=== PATIENT | male | born 1970 | race Asian ===

== ENCOUNTER 2017-08-05 08:18 | Inpatient (IN) | payer OTHER ==
[~2017-08-05] VITALS: Ht 162.6 cm; Wt 78.9 kg
[~2017-08-05 08:18] MED LIST: ASPIRIN EC81 MG PO; AVALIDE 300-121 EACH PO; METOPROLOL SUC100 MG PO; NISOLDIPINE17 MG PO; NITRO PATCH TOP
[2017-08-05] MEDS ORDERED: TETANUS/DIPHTHERIA TOX ADULT 0.5 ML SYR IM ONE (08:45)
[2017-08-05] MEDS ORDERED: SODIUM CHLORIDE 0.9% 1000ML 1,000 ML IV STA (09:06)
[2017-08-05] MEDS ORDERED: MORPHINE SULFATE 4 MG/ML SYR IV STA (09:06)
[2017-08-05] MEDS ORDERED: CEFAZOLIN SOD 1 GM/NS 50ML 50 ML IV STA (09:06)
[2017-08-05] MEDS ORDERED: ONDANSETRON HCL 4 MG ORAL DISINTEGRATING TAB PO ONE (09:15)
--- NOTE | 2017-08-05 09:40 | Diagnostic Imaging Report ---
EXAM: WRIST COMPLETE RIGHT DATE: 08/05/2017 8:43 AM INDICATION: Work injury/trauma COMPARISON: None FINDINGS: On the AP and oblique view there is a tiny ossific density at the base of the fifth metacarpal with adjacent soft tissue swelling. Lucency in the region of the radial styloid statistically represents residual apophysis. Minimal STT and first CMC joint osteoarthritis present. IMPRESSION: Tiny ossific density base of fifth metacarpal suggest tiny avulsion injury. Signed by: Dr. Anthony Currie MD on 08/05/2017 9:37 AM
--- NOTE | 2017-08-05 09:41 | Diagnostic Imaging Report ---
EXAM: HAND 3+ VIEWS RIGHT DATE: 08/05/2017 8:34 AM INDICATION: Injury COMPARISON: None FINDINGS: Tiny ossific density base of fifth metacarpal better visualized on wrist radiographs. Minimal STT and first CMC joint osteoarthritis present. Minimal deformity at the base of the fourth metacarpal possible. Significant dorsal soft tissue swelling present best seen lateral view. IMPRESSION: Tiny avulsion injury base of fifth metacarpal with possible nondisplaced fracture base of fourth metacarpal. Significant soft tissue swelling. Signed by: Dr. Anthony Currie MD on 08/05/2017 9:38 AM
[2017-08-05] MEDS: SODIUM CHLORIDE 0.9% 1000ML 1,000 ML IV SCH ×2 (10:48→21:16)
[2017-08-05] MEDS ORDERED: HYDRALAZINE HCL 20 MG/ML VIAL IV ONE ×2 (11:10→12:48)
[2017-08-05] MEDS ORDERED: CEFAZOLIN SOD 1 GM VIAL ONE (11:13)
--- OUTSIDE RECORDS SUMMARY | 2017-08-05 11:16 | XMS REPORT ---
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 Allergies, Adverse Reactions, Alerts This patient has no known allergies or adverse reactions. Medications This patient has no known medications. Results Test Description Test Time Test Comments Text Results Atomic Results Result Comments WRIST COMPLETE RIGHT [place] [address] Patient Name: ERICK GOMEZ MR #: [id number] : 1970 Age/Sex: 47/M Req #: [id number] Adm Physician: Ordered by: JUAREZ VILLARREAL MD Report #: [id number] Location: ER Room/Bed: Procedure: [id number] DX/WRIST COMPLETE RIGHT Exam Date: 08/05/17 Exam Time: 916 REPORT STATUS: Signed EXAM: WRIST COMPLETE RIGHT DATE: 08/05/2017 8:43 AM INDICATION: Work injury/trauma COMPARISON: None FINDINGS: On the AP and oblique view there is a tiny ossific density at the base of the fifth metacarpal with adjacent soft tissue swelling. Lucency in the region of the radial styloid statistically represents residual apophysis. Minimal STT and first CMC joint osteoarthritis present. IMPRESSION: Tiny ossific density base of fifth metacarpal suggest tiny avulsion injury. Signed by: Dr. Anthony Currie MD on 08/05/2017 9 :37 AM Dictated By: ANTHONY CURRIE MD 6 Transcribed By: IVON on 08/05/17936 COPY TO: JUAREZ VILLARREAL MD HAND 3+ VIEWS RIGHT [place] [address] Patient Name: ERICK GOMEZ MR #: [id number] : 1970 Age/Sex: 47/M Req #: [id number] Adm Physician: Ordered by: JUAREZ VILLARREAL MD Report #: [id number] Location: ER Room/Bed: Procedure: [id number] DX/HAND 3+ VIEWS RIGHT Exam Date: 08/05/17 Exam Time : 916 REPORT STATUS: Signed EXAM: HAND 3+ VIEWS RIGHT DATE: 2017 8:34 AM INDICATION: Injury COMPARISON: None FINDINGS: Tiny ossific density base of fifth metacarpal better visualized on wrist radiographs. Minimal STT and first CMC joint osteoarthritis present. Minimal deformity at the base of the fourth metacarpal possible. Significant dorsal soft tissue swelling present best seen lateral view. IMPRESSION: Tiny avulsion injury base of fifth metacarpal with possible nondisplaced fracture base of fourth metacarpal. Significant soft tissue swelling. Signed by: Dr. Anthony Currie MD on 08/05/2017 9:38 AM Dictated By: ANTHONY CURRIE MD 7 Transcribed By: IVON on 08/05/17937 COPY TO: JUAREZ VILLARREAL MD
--- NOTE | 2017-08-05 11:46 | Diagnostic Imaging Report ---
EXAM: XR CHEST 1 VIEW DATE: 08/05/2017 11:00 AM INDICATION: COMPARISON: None FINDINGS: Lines and Tubes: None Heart and Mediastinum: Sternotomy wires. Tortuous descending thoracic aorta. Lungs and Pleura: Minimal opacities in the lung bases statistically represent atelectasis, however, infectious process could have a similar appearance. Bones and Soft Tissues: No acute findings. IMPRESSION: 1. No acute cardiopulmonary findings. Signed by: Dr. Anthony Currie MD on 08/05/2017 11:42 AM
[2017-08-05 12:04] LABS: BASOPHILS # (AUTO) 0.1 (0.0-0.1); BASOPHILS % 0.5 % (0.0-1.0); EOSINOPHILS # (AUTO) 0.2 (0.0-0.4); EOSINOPHILS % 2.2 % (0.0-6.0); HEMATOCRIT 49.4 % (38.2-49.6); LYMPHOCYTES # (AUTO) 2.1 (1.0-3.2); MEAN CORPUSCULAR HEMOGLOBIN 27.9 pg (28-32); MEAN CORPUSCULAR HGB CONC 34.4 g/dL (31-35); MEAN CORPUSCULAR VOLUME 81.1 fL (81-99); MONOCYTES # (AUTO) 0.5 (0.2-0.8); MONOCYTES % 5.5 % (4.4-11.3); NEUTROPHILS # (AUTO) 6.3 (2.1-6.9); NEUTROPHILS % 68.2 % (38.7-80.0); PLATELET COUNT 163 x10e3/uL (140-360); RED BLOOD COUNT 6.09 x10e6/uL (4.3-5.7); RED CELL DISTRIBUTION WIDTH 12.9 % (11.7-14.4)
[2017-08-05 12:17] LABS: INR 1.02; PROTHROMBIN TIME 12.6 seconds (11.9-14.5)
[2017-08-05 12:19] LABS: CHOL/HDL RATIO 5.9 (3.9-4.7)
[2017-08-05 12:23] LABS: ALANINE AMINOTRANSFERASE 31 IU/L (0-55); ALBUMIN 4.2 g/dL (3.5-5.0); ALKALINE PHOSPHATASE 51 IU/L (40-150); ANION GAP 16.7 mmol/L (8-16); BLOOD UREA NITROGEN 14 mg/dL (7-26); BUN/CREATININE RATIO 15 (6-25); CALCIUM 9.8 mg/dL (8.4-10.2); CARBON DIOXIDE 23 mmol/L (22-29); CHLORIDE 101 mmol/L (98-107); CREATININE, SERUM 0.95 mg/dL (0.72-1.25); EST GLOMERULAR FILTRATION RATE > 60 ML/MIN (60-); GLUCOSE 141 mg/dL (74-118); POTASSIUM 4.7 mmol/L (3.5-5.1); SODIUM 136 mmol/L (136-145)
[2017-08-05] MEDS ORDERED: CLONIDINE HCL 0.1 MG/24 HR 1 EA PATCH TOP SCH (12:30)
[2017-08-05 13:35] VITALS: BP 131/70
[2017-08-05] MEDS ORDERED: MUPIROCIN 2% OINT 22 GM TUBE ONE (13:38)
[2017-08-05] MEDS ORDERED: BACITRACIN 50,000 UNIT VIAL ONE (13:38)
[2017-08-05] MEDS ORDERED: MORPHINE SULFATE 2 MG/ML SYR IV ONE (14:00)
--- NOTE | 2017-08-05 14:30 | History and Physical ---
HISTORY: Patient was admitted through the emergency room, patient of Dr. Yong Pratt. Patient with crush injury of the right hand using what he calls a channel. He makes heat exchangers. His right hand was caught in the machine. He is experiencing moderate pain, swelling, and numbness. He has a history of hypertension, coronary disease, smokes 1/3 of a pack a day, and history of premature coronary disease. Family history of coronary disease. He had bypass surgery in 2014 at [facility]. No respiratory, , or psychiatric complaints. History of angina prior to his bypass surgery, but not now. PHYSICAL EXAMINATION GENERAL: This is a well-developed American male, in no acute distress despite swelling of the right hand. VITAL SIGNS: Temperature 98, pulse 83, and blood pressure 211/126 on arrival. HEENT: Head, normocephalic and atraumatic. Eyes, extraocular movements intact. LUNGS: Clear. HEART: Regular rhythm. Median sternotomy scar. EXTREMITIES: There is edema of the right hand with a woody feeling and decreased pulses. PLAN: Doppler evaluation and hand surgery evaluation. X-ray suggests an avulsion injury in the fifth metacarpal and significant tissues. Awaiting plastic surgery opinion . The patient is still in the triage area. The patient takes aspirin and unknown antihypertensive. Thank you for this kind referral. Job#: [id number] RANDY
[2017-08-05] MEDS ORDERED: BUPIVACAINE HCL 0.5% INJ 30 ML VIAL INJ ONE (14:43)
[2017-08-05] MEDS ORDERED: HYDROMORPHONE 1MG/1ML INJ IV PRN (15:45)
[2017-08-05] MEDS ORDERED: HYDROCODONE/APAP 7.5MG-325MG 1 EA TAB PO PRN (15:45)
[2017-08-05] MEDS ORDERED: HYDROMORPHONE 2MG/ML INJ IV PRN (16:15)
[2017-08-05] MEDS ORDERED: LOSARTAN POTASSIUM 25 MG TAB PO SCH (17:00)
[2017-08-05] MEDS ORDERED: NON-FORMULARY MEDICATION (Metoprolol Succinate 25 MG) PO SCH (17:00)
[2017-08-05] MEDS: METOPROLOL SUCCINATE 25 MG TAB XL PO SCH (17:54)
[2017-08-05 19:38] VITALS: BP 180/98
[2017-08-05 20:18] VITALS: BP 150/84
[2017-08-05] MEDS ORDERED: ATORVASTATIN 20 MG TAB PO SCH (21:00)
[2017-08-05] MEDS: CEFAZOLIN SOD 1 GM VIAL IV SCH (21:16)
[2017-08-05] MEDS: ATORVASTATIN 40 MG TAB PO SCH (21:16)
--- NOTE | 2017-08-05 21:24 | Consultation ---
DATE OF CONSULTATION: August 05, 2017 ER CONSULTATION CHIEF COMPLAINT: Crush injury, right hand. HISTORY OF PRESENT ILLNESS: Patient is a 47-year-old [id number] male who earlier today sustained a crushing injury of the right hand. Patient states that a pipe wing in excess of 500 pounds rolled onto his right hand. He was taken to the emergency room. Evaluation revealed very tense swelling of the right hand with delayed capillary refill that progressed over the course of several hours since the patient's initial evaluation in the emergency room. PAST MEDICAL HISTORY: Notable for coronary artery bypass grafting and essential hypertension. CURRENT PHYSICAL EXAMINATION: The patient has a BP of 131/70. He is afebrile. The pertinent exam of the right hand showed there to be tense swelling with delayed capillary refill of all 5 fingers. The swelling is both volar and dorsal that extends to the distal forearm and wrist. The x-ray showed a small fracture at the base of the right fifth metacarpal, otherwise there are no other dislocations or abnormalities. IMPRESSION: Impending compartment syndrome, right hand. PLAN: Patient will be taken to the OR urgently for decompressive fasciotomy. Risks, benefits, alternatives of treatment will be discussed with the patient. Thank you for allowing me to participate in the care of your patient. Sincerely, Job#: [id number]
--- NOTE | 2017-08-05 21:48 | Operative Report ---
DATE OF PROCEDURE: August 05, 2017 PREOPERATIVE DIAGNOSIS: Crushed injury compartment syndrome, right hand and wrist. POSTOPERATIVE DIAGNOSIS: Crushed injury compartment syndrome, right hand and wrist. PROCEDURE PERFORMED: Decompressive fasciotomy, right hand and wrist. ANESTHESIA: General. HISTORY: The patient is a 47-year-old right-hand dominant male, who has a crushing injury of the right hand and wrist this a.m. Pipe in excess of 500 lbs rolled onto his hand. The risks, alternatives, benefits of treatments discussed with the patient. He was prepared to undergo the procedures as outlined. PROCEDURE: Patient was marked preoperatively in the holding area. He was brought to the operating theater and after the induction of adequate general anesthesia, he was prepped and draped in a supine position. A timeout was performed. A curvilinear incision was marked out palmarly starting from the 2nd metacarpal MPJ and curving through the intrathenar space and onto the radial side of the wrist and then, obliquely over the ulnar neurovascular bundle. Dorsally, incisions were marked out over the 2nd and 4th metacarpals. Right upper extremity was exsanguinated and the tourniquet inflated to a pressure of 250 mmHg. The incision volarly was made through the skin and subcutaneous tissues, where were controlled with the bipolar cautery. The palmar fascia was identified and it was . At this point, a volar forearm fascia was identified proximally and using this as a guide was incised down to the level of the transverse carpal ligament. The transverse carpal ligament was sectioned as well and the underlying median nerve was identified and protected and preserved. He had a massive amount of swelling, which was released after performing this maneuver. There was noted to be a large amount of hematoma at the base of the thenar eminence and this was removed and irrigated free as well. At the completion of the of the median nerve decompression, the ulnar neurovascular bundle was identified proximal to the wrist and the volar forearm fascia over this divided. The entire piece of tunnel was then opened as well. At this point, attention was turned to the dorsum of the hand. The incisions were made over the 2nd and 4th metacarpal through the skin and subcutaneous tissues. Bleeding was controlled using the bipolar cautery. The subcutaneous tissues were divided and the extensor tendon mechanisms were identified. They were retracted away from the underlying metacarpals. The intermetacarpal space musculature was identified and the fascia overlying it was sharply incised and this allowed muscle to bulge and to reduce the pressure. At this point, all the wounds were copiously irrigated with antibiotic-containing solution and exploration reveals there to be no active bleeding at this time and significant softening of the soft tissues. The skin was approximated with 4-0 and 5-0 nylon sutures in an interrupted horizontal mattress fashion. Care was taken to ensure that incisions were done without tension. Bactroban ointment, Xeroform gauze were placed on the incisions. The tourniquet was deflated. All the fingers pinked up nicely and a sterile bulky foam and bandage was applied. A fiberglass splint was used to maintain the wrist in approximately 60 to 70 degrees of extension and the MPs at approximately 60 degrees of flexion and the IPs neutral. This was held in place with loosely wrapped Yasmani wrap. Patient tolerated the procedure well. He was admitted to his hospital room for further care and treatment. Job#: [id number]
[2017-08-05] MEDS ORDERED: CEFAZOLIN SOD 1 GM/NS 50ML 50 ML IV SCH (22:00)
[2017-08-05 22:03] VITALS: BP 150/84
[2017-08-06] VITALS (8 sets, daily range): BP systolic 133–171; BP diastolic 77–95
[2017-08-06] MEDS: CEFAZOLIN SOD 1 GM VIAL IV SCH ×2 (06:02→13:26)
[2017-08-06] MEDS: SODIUM CHLORIDE 0.9% 1000ML 1,000 ML IV SCH ×3 (06:02→20:04)
[2017-08-06 06:56] LABS: BASOPHILS % 0.1 % (0.0-1.0); HEMATOCRIT 41.7 % (38.2-49.6); HEMOGLOBIN 14.5 g/dL (14.0-18.0); LYMPHOCYTES # (AUTO) 1.4 (1.0-3.2); LYMPHOCYTES % 9.5 % (18.0-39.1); MEAN CORPUSCULAR HEMOGLOBIN 28.5 pg (28-32); MEAN CORPUSCULAR HGB CONC 34.8 g/dL (31-35); MEAN CORPUSCULAR VOLUME 81.9 fL (81-99); MONOCYTES % 6.9 % (4.4-11.3); NEUTROPHILS # (AUTO) 11.8 (2.1-6.9); NEUTROPHILS % 82.7 % (38.7-80.0); PLATELET COUNT 173 x10e3/uL (140-360); RED BLOOD COUNT 5.09 x10e6/uL (4.3-5.7); RED CELL DISTRIBUTION WIDTH 13.1 % (11.7-14.4)
[2017-08-06 07:33] LABS: ANION GAP 13.7 mmol/L (8-16); BLOOD UREA NITROGEN 18 mg/dL (7-26); BUN/CREATININE RATIO 17 (6-25); CALCIUM 8.8 mg/dL (8.4-10.2); CARBON DIOXIDE 21 mmol/L (22-29); CHLORIDE 107 mmol/L (98-107); CREATININE, SERUM 1.04 mg/dL (0.72-1.25); EST GLOMERULAR FILTRATION RATE > 60 ML/MIN (60-); GLUCOSE 245 mg/dL (74-118); POTASSIUM 3.7 mmol/L (3.5-5.1); SODIUM 138 mmol/L (136-145)
[2017-08-06] MEDS ORDERED: DEXTROSE 50% SYRINGE 50 ML IV PRN (08:15)
[2017-08-06] MEDS: IRBESARTAN 150 MG TAB PO SCH (08:26)
[2017-08-06] MEDS: HYDROCHLOROTHIAZIDE 25 MG TAB PO SCH (08:26)
[2017-08-06] MEDS: METOPROLOL SUCCINATE 25 MG TAB XL PO SCH ×2 (08:27→16:22)
[2017-08-06] MEDS: ASPIRIN 81 MG CHEW TAB PO SCH (08:32)
[2017-08-06] MEDS ORDERED: NISOLDIPINE PO SCH (09:00)
[2017-08-06] MEDS ORDERED: LOSARTAN POTASSIUM 25 MG TAB PO SCH (09:00)
[2017-08-06] MEDS ORDERED: IRBESARTAN PO SCH (09:00)
[2017-08-06] MEDS ORDERED: NISOLDIPINE 8.5 MG PO SCH (09:00)
[2017-08-06] MEDS ORDERED: HYDROCHLOROTHIAZIDE PO SCH (09:00)
[2017-08-06] MEDS ORDERED: NITRO TOP SCH (09:00)
[2017-08-06] MEDS ORDERED: [UNRECOGNIZED DRUG - OTHER] PO SCH (09:00)
[2017-08-06] MEDS ORDERED: INSULIN LISPRO 100 UNIT/1 ML 3ML VIAL SQ SCH (11:30)
[2017-08-06] MEDS: MUPIROCIN 2% OINT 22 GM TUBE TOP SCH (12:17)
[2017-08-06] MEDS ORDERED: ONDANSETRON HCL INJ 2 MG/ML VIAL ONE (14:21)
[2017-08-06] MEDS ORDERED: SEVOFLURANE INHAL SOLN 250 ML PEN BTL ONE (14:21)
[2017-08-06] MEDS ORDERED: LIDOCAINE HCL 2% LOCAL INJ 5 ML SDV VIAL INJ ONE (14:21)
[2017-08-06] MEDS ORDERED: PROPOFOL IV EMULSION 10 MG/ML 20 ML VIAL ONE (14:21)
[2017-08-06] MEDS ORDERED: DEXAMETHASONE SOD PHOS INJ 4 MG/ML VIAL ONE (14:21)
[2017-08-06 14:41] LABS: FREE T4 (FREE THYROXINE) 1.12 ng/dL (0.9-1.8); THYROID STIMULATING HORMONE 0.325 uIU/mL (0.350-4.940)
--- NOTE | 2017-08-06 15:11 | Consultation ---
DATE OF CONSULTATION: August 05, 2017 ENDOCRINE CONSULTATION ATTENDING PHYSICIAN: Dr. Calix Thank you very much for referring this patient. This is a 47-year-old gentleman who is referred to me for evaluation of diabetes mellitus. Patient tells me that he had mild diabetes in the past on diet control. This time he came to the hospital because of an injury of the right hand. Patient has history of mild hypertension. He is a chronic smoker. He does have family history of diabetes mellitus. His blood sugars at the time of admission were around 250 to 140. PHYSICAL EXAMINATION GENERAL: Today, the patient is alert, awake, a little bit apprehensive. He is average built. VITALS: Heart rate is around 78. Blood pressure 130/80 mmHg. HEENT: Examination is essentially unremarkable. Thyroid is palpable. Clinically he is near euthyroid. CHEST: Bilateral vesicular breathing. No rales. CARDIOVASCULAR: Essentially unremarkable. 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 CLINICAL IMPRESSION 1. Diabetes mellitus. 2. Injury to the right hand. 3. Hypertension. 4. Chronic smoker. PLAN: The plan at this time is to do a hemoglobin A1c and thyroid function test. Monitor his blood sugars closely. Start him on glimepiride as already started and sliding scale insulin. Thanks for referring this patient. I will be following this patient with you. Job#: [id number]
[2017-08-06] MEDS ORDERED: ATORVASTATIN CA10 MG PO (15:30)
[2017-08-06] MEDS ORDERED: METFORMIN HCL500 MG PO (15:30)
[2017-08-06] MEDS: INSULIN LISPRO 100 UNIT/1 ML 3ML VIAL SQ SCH ×2 (16:10→20:53)
[2017-08-06] MEDS ORDERED: FENTANYL CITRATE/PF 100MCG/2 ML INJ ONE (17:42)
[2017-08-06] MEDS ORDERED: MIDAZOLAM HCL 2 MG/2 ML VIAL ONE (17:42)
[2017-08-06] MEDS: ATORVASTATIN 40 MG TAB PO SCH (20:04)
[2017-08-07] VITALS: BP 156/83
[2017-08-07] MEDS: SODIUM CHLORIDE 0.9% 1000ML 1,000 ML IV SCH (03:55)
[2017-08-07 04:00] VITALS: BP 159/93
[2017-08-07] MEDS ORDERED: GLIMEPIRIDE 2 MG TAB PO SCH (08:00)
[2017-08-07 08:41] VITALS: BP 164/100
[2017-08-07] MEDS: HYDROCHLOROTHIAZIDE 25 MG TAB PO SCH (08:56)
[2017-08-07] MEDS: INSULIN LISPRO 100 UNIT/1 ML 3ML VIAL SQ SCH ×2 (08:56→12:21)
[2017-08-07] MEDS: IRBESARTAN 150 MG TAB PO SCH (08:56)
[2017-08-07] MEDS: ASPIRIN 81 MG CHEW TAB PO SCH (08:56)
[2017-08-07] MEDS: METOPROLOL SUCCINATE 25 MG TAB XL PO SCH (08:57)
[2017-08-07] MEDS ORDERED: NISOLDIPINE 8.5 MG PO SCH ×2 (09:00)
[2017-08-07 11:13] VITALS: BP 164/100
[2017-08-07 12:21] VITALS: BP 142/83
[2017-08-07] MEDS: MUPIROCIN 2% OINT 22 GM TUBE TOP SCH (14:14)
[2017-08-07] MEDS ORDERED: NISOLDIPINE30 MG PO (14:25)
[2017-08-07] MEDS ORDERED: IRBESARTAN-HCT1 EAC1 PO (14:26)
[2017-08-07] MEDS ORDERED: NORCO 7.5-3251 EACH PO (14:27)
[2017-08-07] MEDS ORDERED: KEFLEX500 MG PO (14:27)
== END 2017-08-07 15:24 | disposition home or self-care (01) | DRG 906 ==
LOC: ER 08:18 → ERHOLD 11:13 → IMCU 13:16 → OBSVTOIN 17:50 → MED/SURG 18:02
PROVIDERS: ADMIT Internal Medicine Pulmonary Disease; ATTEND Internal Medicine Pulmonary Disease
PROC: 0KNC0ZZ Release Right Hand Muscle, Open Approach (ICD-10-PCS; 2017-08-05)
PROC: 0KNC0ZZ Release Right Hand Muscle, Open Approach (ICD-10-PCS; principal; 2017-08-05 14:30)
DX: S67.21XA Crushing injury of right hand, initial encounter (principal); T79.A11A Traumatic compartment syndrome of right upper extremity, initial encounter; F17.210 Nicotine dependence, cigarettes, uncomplicated; S62.346A Nondisplaced fracture of base of fifth metacarpal bone, right hand, initial encounter for closed fracture; I25.10 Atherosclerotic heart disease of native coronary artery without angina pectoris; Z95.1 Presence of aortocoronary bypass graft; W31.82XA Contact with other commercial machinery, initial encounter; Y93.H3 Activity, building and construction; Y92.69 Other specified industrial and construction area as the place of occurrence of the external cause
CPT/HCPCS: 36415; 71045; 80048; 80053; 80061; 82948; 83036; 84439; 84443; 85025; 85610; 85730; 86850; 86900; 90714; 93005; 93931; J0360; J0690; J1100; J2001; J2250; J2270; J2405; J7030

== ENCOUNTER 2017-08-28 09:57 | Outpatient (RCR) | payer OTHER ==
[~2017-08-28 09:57] MED LIST changes: +ATORVASTATIN CA10 MG PO; +IRBESARTAN-HCT1 EAC1 PO; +KEFLEX500 MG PO; +METFORMIN HCL500 MG PO; +NISOLDIPINE30 MG PO; +NORCO 7.5-3251 EACH PO
== END 2017-08-30 ==
LOC: OT 09:57
PROVIDERS: ATTEND Plastic Surgery
DX: S67.21XD Crushing injury of right hand, subsequent encounter (principal); M79.641 Pain in right hand; M25.441 Effusion, right hand; M25.641 Stiffness of right hand, not elsewhere classified; M25.631 Stiffness of right wrist, not elsewhere classified; R53.1 Weakness
CPT/HCPCS: 97110 ×6; 97139; 97140; 97165; 97760; G8987; G8988; L3808

== ENCOUNTER 2017-09-28 11:00 | Outpatient (RCR) | payer OTHER | END 2017-09-29 | LOC: OT 11:00 | PROVIDERS: ATTEND Plastic Surgery | DX: S67.21XD Crushing injury of right hand, subsequent encounter (principal); M79.641 Pain in right hand; M25.441 Effusion, right hand; M25.641 Stiffness of right hand, not elsewhere classified; M25.631 Stiffness of right wrist, not elsewhere classified; R53.1 Weakness | CPT/HCPCS: 97010 ×8; 97035 ×8; 97110 ×8; 97140 ×8; G8987; G8988 ==

== ENCOUNTER 2017-10-29 13:52 | Outpatient (RCR) | payer OTHER | END 2017-10-30 | LOC: OT 13:52 | PROVIDERS: ATTEND Plastic Surgery | DX: S67.21XD Crushing injury of right hand, subsequent encounter (principal); M79.641 Pain in right hand; M25.441 Effusion, right hand; M25.641 Stiffness of right hand, not elsewhere classified; M25.631 Stiffness of right wrist, not elsewhere classified; R53.1 Weakness | CPT/HCPCS: 97010 ×4; 97035 ×4; 97110 ×2; 97140 ×2; 97530 ×4; G8988; G8989 ==